=== PATIENT | female | born 1960 | race African-American/Black ===

== ENCOUNTER 2022-03-19 09:42 | Emergency (ER) | payer OTHER ==
[~2022-03-19] VITALS: Ht 147.3 cm; Wt 96.0 kg
[2022-03-19] MEDS ORDERED: ALBU8HFA IH (09:47)
[2022-03-19] MEDS ORDERED: ERGO500093 PO (11:07)
[2022-03-19] MEDS ORDERED: FOLI-130 PO (11:07)
[2022-03-19] MEDS ORDERED: METH2.5T6 PO (11:07)
[2022-03-19 11:20] VITALS: BP 125/79
== END 2022-03-19 11:44 | disposition home or self-care (01) ==
LOC: EMS 09:45
DX: S50.862A Insect bite (nonvenomous) of left forearm, initial encounter (principal); J45.909 Unspecified asthma, uncomplicated; Z88.2 Allergy status to sulfonamides; W57.XXXA Bitten or stung by nonvenomous insect and other nonvenomous arthropods, initial encounter; Y93.89 Activity, other specified; Y92.89 Other specified places as the place of occurrence of the external cause; Y99.8 Other external cause status
CPT/HCPCS: 99284; Z7502